=== PATIENT | female | born 1960 | race Caucasian/White ===

== ENCOUNTER 2016-07-21 10:45 | Outpatient (CLI) | payer MEDICAID | END 2016-07-21 10:46 | disposition home or self-care (01) | DX: Z13.9 Encounter for screening, unspecified (principal) ==

== ENCOUNTER 2016-07-31 08:00 | Outpatient (CLI) | payer MEDICAID | END 2016-07-31 08:01 | disposition home or self-care (01) | DX: R73.9 Hyperglycemia, unspecified (principal) ==

== ENCOUNTER 2016-09-29 06:38 | Outpatient (CLI) | payer MEDICAID ==
[2016-09-29 19:32] LABS: ALBUMIN/GLOBULIN RATIO 1.2 (1.0-2.2); BILIRUBIN,TOTAL 0.5 mg/dL (0.2-1.0); CALCIUM 9.2 mg/dL (8.5-10.3); CREATININE 0.6 mg/dL (0.4-1.0); POTASSIUM 3.5 mmol/L (3.5-5.0); TOTAL PROTEIN 7.6 g/dL (6.7-8.2)
== END 2016-09-29 06:39 | disposition home or self-care (01) ==
LOC: LAB.N 06:38
PROVIDERS: ATTEND Nurse Practitioner Gerontology
DX: E87.6 Hypokalemia (principal)
CPT/HCPCS: 36415; 80053

== ENCOUNTER 2016-10-14 11:02 | Outpatient (CLI) | payer MEDICAID ==
[2016-10-15 08:01] LABS: TEST RESULT REPORT (())
== END 2016-10-14 11:03 | disposition home or self-care (01) ==
LOC: LAB.N 11:02
PROVIDERS: ATTEND Nurse Practitioner Gerontology
DX: R74.8 Abnormal levels of other serum enzymes (principal)
CPT/HCPCS: 36415; 81599; 86704; 86709; 86803; 87340

== ENCOUNTER 2016-11-24 09:15 | Outpatient (CLI) | payer MEDICAID ==
[2016-11-24 14:13] LABS: ALBUMIN/GLOBULIN RATIO 1.5 (1.0-2.2); BILIRUBIN,TOTAL 1.1 mg/dL (0.2-1.0); CALCIUM 9.3 mg/dL (8.5-10.3); CREATININE 0.6 mg/dL (0.4-1.0); POTASSIUM 3.6 mmol/L (3.5-5.0); TOTAL PROTEIN 7.6 g/dL (6.7-8.2)
[2016-11-24 14:49] LABS: HEMOGLOBIN A1C 0.68 g/dL
== END 2016-11-24 09:16 | disposition home or self-care (01) ==
LOC: LAB.N 09:15
PROVIDERS: ATTEND Nurse Practitioner Gerontology
DX: R74.8 Abnormal levels of other serum enzymes (principal); E11.9 Type 2 diabetes mellitus without complications; R73.9 Hyperglycemia, unspecified
CPT/HCPCS: 36415; 80053; 83036

== ENCOUNTER 2016-11-27 13:40 | Outpatient (CLI) | payer MEDICAID ==
--- NOTE | 2016-12-10 16:21 | Mammography Report ---
DIGITAL SCREENING MAMMOGRAM: 11/27/2016 CLINICAL INDICATION: A 56-year-old with history of late childbearing, for new baseline. COMPARISON: The patient cannot recall where her previous mammograms were performed. If records in you r office indicate where they were performed, we would be happy to try to obtain them for direct chelsea rison. Otherwise, this will serve as a new baseline. TECHNIQUE: Routine CC and MLO projections were obtained of the breasts. FINDINGS: The breasts demonstrate heterogeneously dense fibroglandular parenchyma bilaterally. Punct ate, typically benign calcifications are present. Intramammary lymph nodes are noted. No suspicious m asses, clustered microcalcifications, or regions of architectural distortion are identified. IMPRESSION: BENIGN FINDINGS. RECOMMENDATION: ROUTINE ANNUAL SCREENING UNLESS OTHERWISE CLINICALLY INDICATED. BIRADS CATEGORY 2-BENIGN FINDINGS. STANDARD QUALIFYING STATEMENTS 1. This examination was reviewed with the aid of Computer-Aided Detection (CAD). 2. A negative or benign imaging report should not delay biopsy if clinically suspicious findings are present. Consider surgical consultation if warranted. More than 5% of cancers are not identified by i maging. 3. Dense breasts may obscure an underlying neoplasm. JOB #: [id number] JOB #:[id number]
== END 2016-11-27 13:41 | disposition home or self-care (01) ==
LOC: DI.N 13:40
PROVIDERS: ATTEND Nurse Practitioner Gerontology
DX: Z12.39 Encounter for other screening for malignant neoplasm of breast (principal)
CPT/HCPCS: 77067

== ENCOUNTER 2017-06-01 22:57 | Outpatient (CLI) | payer MEDICAID ==
[2017-06-01 13:17] LABS: HB2 TOTAL 14.6 g/dL; HEMOGLOBIN A1C 0.55 g/dL; HEMOGLOBIN A1C % 5.6 % (4.6-6.2)
== END 2017-06-01 22:58 | disposition home or self-care (01) ==
LOC: LAB.N 22:57
PROVIDERS: ATTEND Nurse Practitioner Gerontology
DX: E11.9 Type 2 diabetes mellitus without complications (principal)
CPT/HCPCS: 36415; 83036